=== PATIENT | male | born 1965 | race Caucasian/White ===

== ENCOUNTER 2017-02-21 19:26 | Emergency (ER) | payer BC ==
[2017-02-21 19:33] VITALS: BP 110/74
[2017-02-21] MEDS ORDERED: Fluorescein 1 MG Ophth Strip EYELF ONE (19:54)
[2017-02-21] MEDS ORDERED: Proparacaine 0.5% Ophth Soln 15 ML Bottle EYELF PRN (19:55)
[2017-02-21] MEDS ORDERED: Polymyxin B/Trimethoprim 10 ML Bottle EYELF ONE (20:11)
[2017-02-21] MEDS ORDERED: Diclofenac Sodium 0.1% Ophth Soln 5 ML Bottle EYELF SCH (20:28)
[2017-02-22] MEDS ORDERED: Diclofenac Sodium 0.1% Ophth Soln 5 ML Bottle EYELF SCH (08:00)
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
== END 2017-02-21 20:28 | disposition home or self-care (01) ==
LOC: VM.ED 19:26
DX: S05.02XA Injury of conjunctiva and corneal abrasion without foreign body, left eye, initial encounter (principal); Z88.0 Allergy status to penicillin; W45.8XXA Other foreign body or object entering through skin, initial encounter
CPT/HCPCS: 99283; A9270